=== PATIENT | male | born 1990 | race Two or more races ===

== ENCOUNTER → 2024-10-20 | Outpatient (CLI) | payer BC ==
[2024-10-20 15:47] LABS: Urine Bacteria None Seen /hpf (None Seen)
[2024-10-20 16:16] LABS: Basophils # (auto) 0.1 10 ^3/uL (0-0.2); Basophils % (auto) 1.4 % (0.0-2.0); Eosinophils # (auto) 0.3 10 ^3/uL (0-0.8); Hematocrit 42.7 % (41.0-53.0); Hemoglobin 14.1 g/dL (13.5-17.5); Lymphocytes # (auto) 2.2 10 ^3/uL (0.4-5.4); Mean Corpuscular Hemoglobin 27.7 pg (28.0-32.0); Mean Corpuscular Volume 84.1 fL (80.0-100.0); Monocytes # (auto) 0.5 10 ^3/uL (0-1.3); Neutrophils # (auto) 3.7 10 ^3/uL (1.6-8.6); Neutrophils % (auto) 54.6 % (37.0-80.0); Nucleated Red Blood Cells % 0.1 %; Platelet Count (auto) 245 10^3/uL (140-450); Red Blood Cells 5.08 10^6/uL (4.5-5.90); Red Cell Distribution Width 15.2 % (11.8-14.3); White Blood Cell 6.8 10^3/uL (4.4-10.8)
[2024-10-20 16:22] LABS: Urine Blood Negative /uL (Negative); Urine Clarity Clear (Clear); Urine Color Light-Yellow (Yellow); Urine Mucus FEW (None Seen); Urine Protein, UAD Negative (Negative); Urine Specific Gravity 1.023 (1.001-1.035); Urine Squamous Epithelial Cell None Seen /hpf (<5); Urine Urobilinogen Normal (Negative); Urine WBC < 1 /HPF (0-3)
[2024-10-20 16:33] LABS: Alanine Aminotransferase 23 U/L (7-40); Albumin 4.7 g/dL (3.2-4.8); Alkaline Phosphatase 69 U/L (46-116); Anion Gap 8 (5-15); Aspartate Aminotransferase 16 U/L (13-40); BUN/Creatinine Ratio 13.2 (10.0-20.0); Bilirubin, Total 0.5 mg/dL (0.2-1.0); Blood Urea Nitrogen 12 mg/dL (9-23); Calcium 9.9 mg/dL (8.7-10.4); Carbon Dioxide 26 mmol/L (20-31); Chloride 107 mmol/L (98-107); Glucose 89 mg/dL (74-106); Potassium 4.3 mmol/L (3.5-5.1); Sodium 141 mmol/L (136-145); Total Protein 7.2 g/dL (5.7-8.2)
[2024-10-21 07:07] LABS: RPR Non Reactive (Non Reactive)
[2024-10-21 15:38] LABS: Triglycerides 58 mg/dL (< 150)
[2024-10-21 15:39] LABS: Bilirubin, Direct 0.1 mg/dL (<0.3); Cholesterol 209 mg/dL (< 200)
[2024-10-21 15:40] LABS: HDL Cholesterol 53 mg/dL (40-59)
[2024-10-21 15:52] LABS: LDL Cholesterol 149 mg/dL (< 100)
== END | disposition home or self-care (01) ==
LOC: LAB 15:30
PROVIDERS: ATTEND Nurse Practitioner Family
DX: Z00.01 Encounter for general adult medical examination with abnormal findings (principal); Z11.3 Encounter for screening for infections with a predominantly sexual mode of transmission; R10.11 Right upper quadrant pain
CPT/HCPCS: 36415; 80053; 80061; 80076; 81001; 82306; 84443; 85025; 86592; 86703

== ENCOUNTER 2025-07-22 08:19 | Inpatient (IN) | payer BC ==
[2025-07-21 15:00] LABS: Hematocrit 41.0 % (41.0-53.0); Hemoglobin 14.0 g/dL (13.5-17.5); Mean Corpuscular Hemoglobin 28.7 pg (28.0-32.0); Mean Corpuscular Volume 84.1 fL (80.0-100.0); Nucleated Red Blood Cells % 0.0 %
[2025-07-21 15:17] LABS: INR 0.99 (0.9-1.15); Partial Thromboplastin Time 31.2 SEC (24.5-34.5); Prothrombin Time 10.5 sec (9.3-11.8)
[2025-07-21 15:31] LABS: Alanine Aminotransferase 25 U/L (7-40); Albumin 4.8 g/dL (3.2-4.8); Alkaline Phosphatase 74 U/L (46-116); Anion Gap 10 (5-15); BUN/Creatinine Ratio 11.8 (10.0-20.0); Bilirubin, Total 0.4 mg/dL (0.2-1.0); Blood Urea Nitrogen 12 mg/dL (9-23); Calcium 9.8 mg/dL (8.7-10.4); Carbon Dioxide 28 mmol/L (20-31); Chloride 104 mmol/L (98-107); Glucose 85 mg/dL (74-106); Potassium 4.5 mmol/L (3.5-5.1); Sodium 142 mmol/L (136-145); Total Protein 7.7 g/dL (5.7-8.2); Urine Protein, UAD Negative (Negative)
[~2025-07-22] VITALS: Ht 170.2 cm; Wt 109.0 kg
[2025-07-22] VITALS (7 sets, daily range): BP systolic 111–117; BP diastolic 69–74; PULSE 61–94; RESP 12–19; TEMP 97.5–98.2; O2SAT 96–100
[2025-07-22] MEDS ORDERED: SUGAMMADEX 200mg/2ml Vial (100MG/ML) IV ONE (10:07)
[2025-07-22] MEDS ORDERED: ONDANSETRON HCL 4 MG/2 ML VIAL ONE (10:07)
[2025-07-22] MEDS ORDERED: PROPOFOL 10 MG/ML 20 ML IV ONE (10:07)
[2025-07-22] MEDS ORDERED: fentaNYL CITRATE 100 MCG/2 ML VL ONE (10:07)
[2025-07-22] MEDS ORDERED: ROCURONIUM 10MG/ML 10ML VIAL IV ONE (10:07)
[2025-07-22] MEDS ORDERED: KETAMINE 50mg/ML 1ml syringe ONE (10:07)
[2025-07-22] MEDS ORDERED: MIDAZOLAM HCL 2MG/2ML 2ml VIAL (1mg/ml) ONE (10:10)
--- NOTE | 2025-07-22 12:26 | DVHOP ---
DATE OF SURGERY: 07/22/2025 PREOPERATIVE DIAGNOSES: Cholelithiasis and cholecystitis. POSTOPERATIVE DIAGNOSES: Cholelithiasis and cholecystitis. The patient's operation was aborted due to severe bradycardia following ____ of carbon dioxide into the peritoneal cavity. The anesthesiologist reported a decrease in the patient's heart rate to 28 from the initial heart rate of 75. Despite multiple drugs given, the highest that his heart rate returned to was approximately 50 each time we attempted insufflation. After releasing the insufflation, his bradycardia returned. For this reason, due to the refractory bradycardia, the operation was canceled. The patient will be admitted and Cardiology consult will be obtained. MD GIULIA Donaldson/CIARAN/AMBROSIO TID: [id number] RECEIPT: [id number]
[2025-07-22] MEDS: KETOROLAC TROMETH 30 MG/ML 1ML VIAL IV ONE (12:35)
[2025-07-22] MEDS ORDERED: NITROGLYCERIN 0.4 MG SL TAB SL PRN (12:45)
[2025-07-22] MEDS ORDERED: ONDANSETRON HCL 4 MG/2 ML VIAL IV PRN (12:45)
[2025-07-22] MEDS ORDERED: ACETAMINOPHEN 325 MG TAB PO PRN (12:45)
[2025-07-22] MEDS ORDERED: MORPHINE SULFATE INJ 2 MG/ml SYRG IV PRN (12:45)
--- NOTE | 2025-07-22 12:45 | DVHHP2 ---
Review of Systems Allergies: Coded Allergies: NO KNOWN ALLERGIES (Unverified , 07/21/25) Medications Current Medications Medications Dose Ordered Sig/Jj Route Start Time Stop Time Status Last Admin Dose Admin Sodium Chloride 1,000 ml @ 125 mls/hr Q8H IV 07/22/25 11:15 Exam Vital Signs Vital Signs Date Time Temp Pulse Resp B/P (MAP) Pulse Ox O2 Delivery O2 Flow Rate FiO2 07/22/25 11:04 97.3 65 19 139/73 (95) 100 97.3 07/22/25 11:04 Mask 5.0 07/22/25 11:04 100 Labs/Xrays Labs Test 07/21/25 14:53 Range/Units White Blood Count 8.4 4.4-10.8 10^3/uL Red Blood Count 4.87 4.5-5.90 10^6/uL Hemoglobin 14.0 13.5-17.5 g/dL Hematocrit 41.0 41.0-53.0 % Mean Corpuscular Volume 84.1 80.0-100.0 fL Mean Corpuscular Hemoglobin 28.7 28.0-32.0 pg Mean Corpuscular Hemoglobin Concent 34.2 32.0-36.0 g/dL Red Cell Distribution Width 14.8 H 11.8-14.3 % Platelet Count 257 140-450 10^3/uL Mean Platelet Volume 9.0 6.9-10.8 fL Neutrophils (%) (Auto) 54.2 37.0-80.0 % Lymphocytes (%) (Auto) 34.0 10.0-50.0 % Monocytes (%) (Auto) 6.5 0.0-12.0 % Eosinophils (%) (Auto) 4.1 0.0-7.0 % Basophils (%) (Auto) 1.2 0.0-2.0 % Neutrophils # (Auto) 4.6 1.6-8.6 10 ^3/uL Lymphocytes # (Auto) 2.9 0.4-5.4 10 ^3/uL Monocytes # (Auto) 0.5 0-1.3 10 ^3/uL Eosinophils # (Auto) 0.3 0-0.8 10 ^3/uL Basophils # (Auto) 0.1 0-0.2 10 ^3/uL Nucleated Red Blood Cells 0.0 % Prothrombin Time 10.5 9.3-11.8 sec Prothrombin Time INR 0.99 0.9-1.15 Activated Partial Thromboplast Time 31.2 24.5-34.5 SEC Urine Color Colorless Yellow Urine Clarity Clear Clear Urine pH 6.5 5.0-9.0 Urine Specific [place] 1.007 1.001-1.035 Urine Protein Negative Negative Urine Ketones Negative Negative Urine Blood Negative Negative /uL Urine Nitrite Negative Negative Urine Bilirubin Negative Negative Urine Urobilinogen Normal Negative mg/dL Urine Leukocyte Esterase Negative Negative /uL Urine RBC None seen 0 - 3 /hpf Urine Microscopic WBC < 1 0-3 /HPF Urine Squamous Epithelial Cells None seen <5 /hpf Urine Bacteria None seen None Seen /hpf Urine Glucose Normal Normal mg/dL Sodium Level 142 136-145 mmol/L Potassium Level 4.5 3.5-5.1 mmol/L Chloride Level 104 98-107 mmol/L Carbon Dioxide Level 28 20-31 mmol/L Anion Gap 10 5-15 Blood Urea Nitrogen 12 9-23 mg/dL Creatinine 1.02 0.700-1.30 mg/dL Glomerular Filtration Rate Calc 99 >90 mL/min BUN/Creatinine Ratio 11.8 10.0-20.0 Serum Glucose 85 74-106 mg/dL Calcium Level 9.8 8.7-10.4 mg/dL Total Bilirubin 0.4 0.2-1.0 mg/dL Aspartate Amino Transferase (AST) 23 13-40 U/L Alanine Aminotransferase (ALT) 25 7-40 U/L Alkaline Phosphatase 74 46-116 U/L Total Protein 7.7 5.7-8.2 g/dL Albumin 4.8 3.2-4.8 g/dL Microbiology Date/Time Source Procedure Growth Status 07/21/25 14:53 Voided Urine Urine Culture - Preliminary No growth Resulted SEPSIS Sepsis Screen Physician Orders Lidocaine W/Epinephrine 1% Inj (07/22/25 09:54) * Cardiology Consult (07/22/25 11:10) * Hospitalist Consult (07/22/25 ) * Cardiology Consult (07/22/25 11:12) Npo (Nothing By Mouth) Diet (07/22/25 Lunch) Page Hospitalist For Admission (07/22/25 11:13) Call/Page Hospitalist/Atten Fo (07/22/25 11:13) Abdominal Binder (07/22/25 11:13) Sodium Chloride 0.9% (07/22/25 11:15) Admit (07/22/25 12:38) Nitroglycerin Sublingual (Ntrostat Subli (07/22/25 12:45) Morphine Sulfate Injection (07/22/25 12:45) Stat Ekg For Chest Pain (07/22/25 12:38) Notify Md Of Changes From Base (07/22/25 12:38) Change Attendant For 24 Hours (07/22/25 12:38) Emergency Dysrhythmia Protocol (07/22/25 12:38) Rhythm Strips Once Every Shift (07/22/25 12:38) Oxygen By Nasal Cannula (07/22/25 12:38) Full Liq Diet (07/22/25 Lunch) Vital Signs Date Time Temp Pulse Resp B/P (MAP) Pulse Ox O2 Delivery O2 Flow Rate FiO2 07/22/25 11:04 97.3 65 19 139/73 (95) 100 97.3 07/22/25 11:04 65 19 100 Mask 5.0 07/22/25 11:04 Mask 5.0 100 07/22/25 08:25 98.0 65 20 122/73 (89) 95 98.0 Assessment/Plan Assessment/Plan see dictated note Plan discussed with: Patient My Orders Orders - SONYA PAYAN MD Procedure Category Date Status Time Admit ADMIT 07/22/25 Verified 12:38 Nitroglycerin PHA 07/22/25 Verified Sublingual (Ntrostat 12:45 Morphine Sulfate PHA 07/22/25 Verified Injection 12:45 Stat Ekg For Chest LEXIS 07/22/25 Verified Pain 12:38 Notify Md Of Changes [facility] 07/22/25 Verified From Base 12:38 Change Attendant For [facility] 07/22/25 Verified 24 Hours 12:38 Emergency Dysrhythmia [facility] 07/22/25 Verified Protocol 12:38 Rhythm Strips Once [facility] 07/22/25 Verified Every Shift 12:38 Oxygen By Nasal RT 07/22/25 Verified Cannula 12:38 Full Liq Diet DIET 07/22/25 Verified Lunch Date of Service: Jul 22, 2025 Billing Provider: SONYA PAYAN MD Common Visit Codes: [id number] INP/OBS CARE (HIGH) SONYA PAYAN MD Jul 22, 2025 12:45
--- NOTE | 2025-07-22 12:58 | DVHINCON2 ---
Date Seen: Jul 22, 2025 Referring Physician TITO Randall Reason for Consultation Intraoperative bradycardia History of Present Illness This is a 35-year-old male patient who presents to this facility for a scheduled cholecystectomy. Intraoperatively, the patient was noted to become bradycardic with heart rate reaching as low as 19 beats per minute per Anesthesiology report. At that time, the patient was given Atropine 1.4mg followed by a total of 20mg epinephrine intravenously. At the time of assessment, the patient is back in a normal sinus rhythm. A twelve lead electrocardiogram done postoperatively revealed normal sinus rhythm. The patient denies any cardiac symptoms. Significant past medical history includes tobacco use and obesity. The patient denies taking any prescribed or [id number] medications. He does report history of phentermine use with last dose taken on 06/29/2025. Past Medical History Past medical history reviewed. No other significant than mentioned above. Past Surgical History Denies any previous surgeries Family History Family history reviewed. Social History Patient reports a 12 year history of chewing tobacco, quit approximately two years ago Denies any illicit drug use Admits to occasional alcohol use Allergies: Coded Allergies: NO KNOWN ALLERGIES (Unverified , 07/21/25) Home Meds No Active Prescriptions or Reported Meds Home Meds Denies taking any prescribed medications Current Medications Current Medications Medications (Trade) Dose Ordered Sig/Jj Route PRN Reason Start Time Stop Time Status Last Admin Sodium Chloride 1,000 ml @ 125 mls/hr Q8H IV 07/22/25 11:15 Review of Systems Constitutional: No symptom reported Ears, Nose, & Throat: No symptom reported Eyes: No symptom reported Neurological: No symptoms reported Pulmonary/Respiratory: No symptoms reported Cardiovascular: No symptom reported Gastrointestinal: No symptom reported Genitourinary: No symptom reported Musculoskeletal: No symptom reported Skin: No symptom reported Psychiatric: No symptom reported Endocrine: No symptom reported Hematologic/Lymphatic: No symptom reported Vital Signs Vital Signs Date Time Temp Pulse Resp B/P (MAP) Pulse Ox O2 Delivery O2 Flow Rate FiO2 07/22/25 11:04 97.3 65 19 139/73 (95) 100 97.3 07/22/25 11:04 Mask 5.0 07/22/25 11:04 100 Physical Exam General Appearance: Cooperative. Obese Pulmonary/Respiratory: Clear, bilateral breaths sounds. Cardiovascular/Chest: Regular rate and rhythm. Peripheral Pulses: 2+ Radial (R). 2+ Radial (L). 2+ Pedal (R). 2+ Pedal (L) Abdominal Exam: Normal bowel sounds Ankle Exam: Negative ankle edema Lower extremities: Negative lower extremity edema Neuro/Mental Status: A/OX4, coherent. Thoughts/Psych: Normal thought pattern. Appropriate mood and affect. Good judgment and insight. Appearance: No acute distress. Skin Exam: Normal inspection. Normal color. Warm and dry. Labs/Diagnostic Data Labs Test 07/21/25 14:53 Range/Units White Blood Count 8.4 4.4-10.8 10^3/uL Red Blood Count 4.87 4.5-5.90 10^6/uL Hemoglobin 14.0 13.5-17.5 g/dL Hematocrit 41.0 41.0-53.0 % Mean Corpuscular Volume 84.1 80.0-100.0 fL Mean Corpuscular Hemoglobin 28.7 28.0-32.0 pg Mean Corpuscular Hemoglobin Concent 34.2 32.0-36.0 g/dL Red Cell Distribution Width 14.8 H 11.8-14.3 % Platelet Count 257 140-450 10^3/uL Mean Platelet Volume 9.0 6.9-10.8 fL Neutrophils (%) (Auto) 54.2 37.0-80.0 % Lymphocytes (%) (Auto) 34.0 10.0-50.0 % Monocytes (%) (Auto) 6.5 0.0-12.0 % Eosinophils (%) (Auto) 4.1 0.0-7.0 % Basophils (%) (Auto) 1.2 0.0-2.0 % Neutrophils # (Auto) 4.6 1.6-8.6 10 ^3/uL Lymphocytes # (Auto) 2.9 0.4-5.4 10 ^3/uL Monocytes # (Auto) 0.5 0-1.3 10 ^3/uL Eosinophils # (Auto) 0.3 0-0.8 10 ^3/uL Basophils # (Auto) 0.1 0-0.2 10 ^3/uL Nucleated Red Blood Cells 0.0 % Prothrombin Time 10.5 9.3-11.8 sec Prothrombin Time INR 0.99 0.9-1.15 Activated Partial Thromboplast Time 31.2 24.5-34.5 SEC Urine Color Colorless Yellow Urine Clarity Clear Clear Urine pH 6.5 5.0-9.0 Urine Specific [place] 1.007 1.001-1.035 Urine Protein Negative Negative Urine Ketones Negative Negative Urine Blood Negative Negative /uL Urine Nitrite Negative Negative Urine Bilirubin Negative Negative Urine Urobilinogen Normal Negative mg/dL Urine Leukocyte Esterase Negative Negative /uL Urine RBC None seen 0 - 3 /hpf Urine Microscopic WBC < 1 0-3 /HPF Urine Squamous Epithelial Cells None seen <5 /hpf Urine Bacteria None seen None Seen /hpf Urine Glucose Normal Normal mg/dL Sodium Level 142 136-145 mmol/L Potassium Level 4.5 3.5-5.1 mmol/L Chloride Level 104 98-107 mmol/L Carbon Dioxide Level 28 20-31 mmol/L Anion Gap 10 5-15 Blood Urea Nitrogen 12 9-23 mg/dL Creatinine 1.02 0.700-1.30 mg/dL Glomerular Filtration Rate Calc 99 >90 mL/min BUN/Creatinine Ratio 11.8 10.0-20.0 Serum Glucose 85 74-106 mg/dL Calcium Level 9.8 8.7-10.4 mg/dL Total Bilirubin 0.4 0.2-1.0 mg/dL Aspartate Amino Transferase (AST) 23 13-40 U/L Alanine Aminotransferase (ALT) 25 7-40 U/L Alkaline Phosphatase 74 46-116 U/L Total Protein 7.7 5.7-8.2 g/dL Albumin 4.8 3.2-4.8 g/dL Microbiology Date/Time Source Procedure Growth Status 07/21/25 14:53 Voided Urine Urine Culture - Preliminary No growth Resulted Assessment Sinus bradycardia, now normal sinus rhythm Rule out structural heart disease Cholelithiasis and cholecystitis History of tobacco use Obesity Plan/Recommendation We will continue with the following plan/recommendations (): * Transthoracic echocardiogram to evaluate cardiac function * Avoid AV rathur blocking agents at this time * Obtain TSH * Close cardiac surveillance;call cardiology immediately for any ECG changes including pauses or atrioventricular blocks Case discussed with Dr. Zimmerman and twelve lead electrocardiogram reviewed with . No significant pauses or atrioventricular blocks noted. Thank you for allowing us to care for this patient. Please call with any questions or concerns. Critical care time spent: 44 minutes This medical document was created using an electronic medical record system with voice recognition software and computerized dictation system. Although this document has been carefully reviewed, there might still be some phonetic and typographical errors. Occasional wrong-word or ``sound-alike substitutions may have occurred due to the inherent limitations of voice recognition software. These areas are purely typographical due to imperfections of the software programs and do not reflect any compromise in the patient's medical care. Please read the chart carefully and recognize, using context, where these substitutions have occurred. Plan discussed with: Patient NYHA Physical activity limitations: NA Date of Service: Jul 22, 2025 Billing Provider: TIMUR MISHRA Cardiology Common Codes: [id number] INP/OBS CARE (High) Cardiology Consultation Codes: [id number] CONSULT <45MIN TIMUR MISHRA Jul 22, 2025 12:58
--- NOTE | 2025-07-22 13:01 | DVHHP ---
HISTORY OF PRESENT ILLNESS: The patient is a 35-year-old gentleman who had initially come in for cholelithiasis and chronic cholecystitis. The patient while undergoing surgery, however, was noted to have bradycardia with heart rate as in the 28. The patient's procedure was subsequently aborted and he was brought to the recovery room. The patient at this time denies any chest pain, no shortness of breath, no nausea or vomiting. There is mild abdominal tenderness at the site of surgery. REVIEW OF SYSTEMS: Review of rest of systems otherwise currently negative. PAST MEDICAL HISTORY: No significant illness in the past. MEDICATIONS: He takes no medications on a regular basis, although he was on phentermine, which he stopped a month ago. ALLERGIES: No known drug allergies. SOCIAL HISTORY: Denies smoking. Occasional alcohol. FAMILY HISTORY: Negative. PHYSICAL EXAMINATION: GENERAL: The patient is awake, alert. VITAL SIGNS: Temperature of 97.3, pulse 65 per minute, blood pressure 139/73. SHEENT: Unremarkable. NECK: There is no JVD. No pedal edema. LUNGS: Equal bilaterally. No added sounds. CARDIOVASCULAR: S1 and S2 is regular without murmurs. ABDOMEN: Soft. There is no organomegaly. NEUROLOGIC: Nonfocal. MUSCULOSKELETAL: Normal. ASSESSMENT AND PLAN: * Bradycardia for which the patient will get an echocardiogram done. TSH will be checked as well as a Cardiology evaluation be obtained. * Obesity. * Cholelithiasis with questionable chronic cholecystitis with aborted cholecystectomy. MD BUCK Thomson/MARINA TID: [id number] RECEIPT: [id number]
[2025-07-22] MEDS: ceFAZolin 2 GM/D5W50ml 50 ML IV ONE (13:37)
[2025-07-22] MEDS: LIDOCAINE W/ EPINEPHRINE 1% 20ML VIAL ONE (13:37)
[2025-07-22] MEDS: BUPIVACAINE 0.5% P/F INJ 10 ML VIAL ONE (13:37)
[2025-07-22] MEDS: KETOROLAC TROMETH 30 MG/ML 1ML VIAL ONE (13:38)
[2025-07-22 13:39] LABS: Amphetamine Screen, Urine Neg (NEGATIVE); Barbiturate Scree,Urine Neg (NEGATIVE); Benzodiazephine Screen, Urine Pos (NEGATIVE); Cocaine Screen, Urine Neg (NEGATIVE); Opiate Scree,Urine Neg (NEGATIVE); Phencyclidine Screen, Urine Neg (NEGATIVE)
[2025-07-22 13:40] LABS: Cannabinoid Screen, Urine Neg (NEGATIVE)
[2025-07-22 13:45] LABS: Hematocrit 41.3 % (41.0-53.0); Hemoglobin 14.0 g/dL (13.5-17.5); Mean Corpuscular Hemoglobin 28.6 pg (28.0-32.0); Mean Corpuscular Volume 84.2 fL (80.0-100.0); Nucleated Red Blood Cells % 0.0 %
[2025-07-22 14:03] LABS: Alanine Aminotransferase 23 U/L (7-40); Alkaline Phosphatase 69 U/L (46-116); Anion Gap 6 (5-15); BUN/Creatinine Ratio 15.1 (10.0-20.0); Blood Urea Nitrogen 13 mg/dL (9-23); Calcium 9.4 mg/dL (8.7-10.4); Carbon Dioxide 29 mmol/L (20-31); Chloride 105 mmol/L (98-107); Potassium 4.4 mmol/L (3.5-5.1); Sodium 140 mmol/L (136-145); Total Protein 7.1 g/dL (5.7-8.2)
[2025-07-22 14:04] LABS: Albumin 4.5 g/dL (3.2-4.8); Bilirubin, Total 0.3 mg/dL (0.2-1.0)
[2025-07-22 14:09] LABS: Glucose 110 mg/dL (74-106)
[2025-07-22] MEDS: SODIUM CHLORIDE 0.9% 1,000 ML IV SCH (15:43)
--- NOTE | 2025-07-22 18:20 | DVHSR ---
APPROVED REPORT EXAM: Two-dimensional and M-mode echocardiogram with Doppler and color Doppler. INDICATION Bradycardia RISK FACTORS Height: 67, Weight: 238 DIMENSIONS LVDd 4.6 (3.8-5.7cm) LA (2D) 3.5 (1.9-4.0cm) Aortic Root 3.2 (2.0-3.7cm) LVDs 2.9 (2.5-4.0cm) LA (MM) (1.9-4.0cm) Aortic Cusp Exc 1.8 (1.5-2.0cm) EF (%) 65.0 (55-70%) Rt. Atrium 4.4 (1.9-4.0cm) Asc. Aorta 2.7 cm IVSd 1.1 (0.7-1.1cm) RV (D) (1.8-2.4cm) PWd 1.0 (0.7-1.1cm) Mitral Valve Mitral Mitral Stenosis E wave 1.03m/s MV Mean GR. mmHg A wave 0.62m/s MV Peak GR. mmHg E/A ratio 1.7 2D MVA cm2 DECEL Time 145ms PRESS 1/2 Time ms Aortic Valve Aortic Valve Aortic Stenosis V1 1.06m/s AO Mean GR. 5mmHg V2 1.39m/s AO Peak GR. 8mmHg LVOT Diameter 2.0 (1.8-2.4cm) Doppler NORM 2.39cm2 Pulmonic Valve V2 1.03m/s Tricuspid Valve RVSP 8mmHg Other Information Technically limited study due to limited access to subcostal window. Conclusion Technically good study. Sinus rhythm. Normal chamber sizes. Valves are normal. EF of 55-60% with normal RV function. Dopplers unremarkable. No pericardial effusion masses or vegetations.
[2025-07-23] VITALS (8 sets, daily range): BP systolic 107–119; BP diastolic 66–74; PULSE 50–66; RESP 14–18; TEMP 96.2–98.1; O2SAT 94–98
[2025-07-23] MEDS: SODIUM CHLORIDE 0.9% 1,000 ML IV SCH (02:35)
--- NOTE | 2025-07-23 10:08 | DVHPN2 ---
Progress Note Date Seen: Jul 23, 2025 Medical Necessity Reason Pt with a Central, PICC or Fol: No Subjective Patient reports: No new complaints Review of Systems: HEENT:Normal, CVS:Normal, RESPIRATORY:Normal, GI:Normal, :Normal, MSK:Normal, NEURO:Normal Objective vital signs Vital Sign Date Time Temp Pulse Resp B/P (MAP) Pulse Ox O2 Delivery O2 Flow Rate FiO2 07/23/25 09:00 96.2 65 18 111/67 (82) 94 96.2 07/22/25 20:00 Room Air* 0 21 Total Intake and Output 07/22/25 07/22/25 07/23/25 15:00 23:00 07:00 Intake Total 100 ml 250 ml 450 ml Output Total 600 ml 600 ml Balance 100 ml -350 ml -150 ml medications Current Medications Medications Dose Ordered Sig/Jj Route Start Time Stop Time Status Last Admin Dose Admin Sodium Chloride 1,000 ml @ 125 mls/hr Q8H IV 07/22/25 11:15 07/23/25 02:36 125 MLS/HR Nitroglycerin 0.4 mg Q5MINP PRN SL 07/22/25 12:45 Morphine Sulfate 2 mg Q30M PRN IV 07/22/25 12:45 Acetaminophen 650 mg Q6HP PRN PO 07/22/25 12:45 Ondansetron HCl 4 mg Q6HPRN PRN IV 07/22/25 12:45 Tramadol HCl 50 mg Q6HP PRN PO 07/22/25 12:45 07/23/25 08:03 50 MG Examination: GENERAL:Normal, HEENT:Normal, NECK:Normal, LUNGS:Normal, CVS:Normal, ABDOMEN:Normal, MSK:Normal, SKIN:Normal, NEURO:Normal, :Normal laboratory and microbiology Laboratory Tests 07/22/25 13:34 Test 07/22/25 13:34 Range/Units Serum Glucose 110 H 74-106 mg/dL Microbiology Date/Time Source Procedure Growth Status 07/21/25 14:53 Voided Urine Urine Culture - Preliminary No growth Resulted Problem List/Assessment/Plan Problem List/Assessment/Plan * Bradycardia for which the patient will get an echocardiogram done. TSH will be checked as well as a Cardiology evaluation be obtained. * Obesity. * Cholelithiasis with questionable chronic cholecystitis with aborted cholecystectomy. Plan discussed with: Patient My Orders My Orders Orders - SONYA PAYAN MD Procedure Category Date Status Time Admit ADMIT 07/22/25 Transmitted 12:38 Nitroglycerin PHA 07/22/25 In Process Sublingual (Ntrostat 12:45 Morphine Sulfate PHA 07/22/25 In Process Injection 12:45 Stat Ekg For Chest [facility] 07/22/25 In Process Pain 12:38 Notify Md Of Changes [facility] 07/22/25 In Process From Base 12:38 Channel Specialist For [facility] 07/22/25 In Process 24 Hours 12:38 Emergency Dysrhythmia [facility] 07/22/25 In Process Protocol 12:38 Rhythm Strips Once [facility] 07/22/25 In Process Every Shift 12:38 Oxygen By Nasal RT 07/22/25 Transmitted Cannula 12:38 Full Liq Diet DIET 07/22/25 Transmitted Lunch Acetaminophen Tablet PHA 07/22/25 In Process (Tylenol Tablet) 12:45 Ondansetron Hcl PHA 07/22/25 In Process (Zofran) 12:45 Tramadol Hcl (Ultram) PHA 07/22/25 In Process 12:45 Urinalysis LAB 07/22/25 Logged 12:58 NS PHA 07/23/25 Transmitted 10:15 Regular Diet DIET 07/23/25 Transmitted Lunch Date of Service: Jul 23, 2025 Billing Provider: SONYA PAYAN MD Common Visit Codes: [id number] INP/OBS CARE(HIGH) SONYA PAYAN MD Jul 23, 2025 10:08
--- NOTE | 2025-07-23 11:58 | ECG ---
[facility] Test Date: 2025-07-22 Test Time: 11:11:33 Pat Name: STEVE RIDDLE Department: Room: 0223T B Gender: M Senior Painter: SHAMEKA T : 1990 Requested By: GALO WOLFE Order Number: [id number] Reading MD: To Zimmerman Measurements Intervals [place] Rate: 65 P: -5 WY: 148 QRS: 30 QRSD: 78 T: 29 QT: 376 QTc: 391 Interpretive Statements Normal sinus rhythm Electronically Signed On 07-23-2025 19:25:07 PST by To Zimmerman Please click the below link to view image of tracing.
--- NOTE | 2025-07-23 13:36 | DVHPN2 ---
Consult Progress Note Subjective Other Systems: Patient in sinus bradycardia (HR high 50's) at time of assessment. color television console monitor reviewed from overnight, heart rate reached as low as 47 beats per minute without any atrioventricular blocks or pauses. The patient denies any cardiac symptoms. Objective vital signs Vital Sign Date Time Temp Pulse Resp B/P (MAP) Pulse Ox O2 Delivery O2 Flow Rate FiO2 07/23/25 09:00 96.2 65 18 111/67 (82) 94 96.2 07/22/25 20:00 Room Air* 0 21 Total Intake and Output 07/22/25 07/22/25 07/23/25 15:00 23:00 07:00 Intake Total 100 ml 250 ml 450 ml Output Total 600 ml 600 ml Balance 100 ml -350 ml -150 ml medications Current Medications Medications Dose Ordered Sig/Jj Route Start Time Stop Time Status Last Admin Dose Admin Nitroglycerin 0.4 mg Q5MINP PRN SL 07/22/25 12:45 Morphine Sulfate 2 mg Q30M PRN IV 07/22/25 12:45 Acetaminophen 650 mg Q6HP PRN PO 07/22/25 12:45 Ondansetron HCl 4 mg Q6HPRN PRN IV 07/22/25 12:45 Tramadol HCl 50 mg Q6HP PRN PO 07/22/25 12:45 07/23/25 08:03 50 MG Sodium Chloride 1,000 ml @ 75 mls/hr [id number] IV 07/23/25 10:15 07/23/25 10:50 75 MLS/HR Examination: GENERAL:Normal, LUNGS:Normal, CVS:Normal, NEURO:Normal laboratory and microbiology Laboratory Tests 07/22/25 13:34 Test 07/22/25 13:34 Range/Units Serum Glucose 110 H 74-106 mg/dL Problem List/Assessment/Plan Problem List/Assessment/Plan Preprocedural cardiovascular examination Sinus bradycardia Ruled out structural heart disease Cholelithiasis and cholecystitis History of tobacco use Obesity Plan/Recommendations (): * Transthoracic echocardiogram reveals an EF of 55-60% * Avoid AV arthur blocking agents at this time * Close cardiac surveillance;call cardiology immediately for any ECG changes including pauses or atrioventricular blocks Case discussed reviewed with Dr. Zimmerman and twelve lead electrocardiogram reviewed with . No significant pauses or atrioventricular blocks noted. Revised cardiac risk index for preoperative risk (Marc criteria): 1 point (1.1% risk of major cardiac event). Cardiac symptoms have been ruled out. There is no underlying history of congestive heart failure, coronary artery disease, or equivalent of cardiac symptoms. The patient reports a good functional capacity. Per cardiology standpoint, patient is at an acceptable-risk for moderate-risk surgery. There is no additional cardiac work-up indicated prior to surgery. Please reconsult Cardiology team if needed. Thank you for allowing us to care for this patient. Please call with any questions or concerns. This medical document was created using an electronic medical record system with voice recognition software and computerized dictation system. Although this document has been carefully reviewed, there might still be some phonetic and typographical errors. Occasional wrong-word or ``sound-alike substitutions may have occurred due to the inherent limitations of voice recognition software. These areas are purely typographical due to imperfections of the software programs and do not reflect any compromise in the patient's medical care. Please read the chart carefully and recognize, using context, where these substitutions have occurred. Plan discussed with: Patient Date of Service: Jul 23, 2025 Billing Provider: TIMUR MISHRA Common Visit Codes: [id number] INP/OBS CARE(HIGH) TIMUR MISHRA Jul 23, 2025 13:36
[2025-07-24] VITALS (11 sets, daily range): BP systolic 102–130; BP diastolic 61–82; PULSE 46–68; RESP 15–18; TEMP 97–98.1; O2SAT 94–98
[2025-07-24] MEDS ORDERED: ceFAZolin 2 GM/D5W50ml 0 ML IV ONE (08:35)
[2025-07-24] MEDS ORDERED: LIDOCAINE 1%-Mpf/Epinephrine 1:200,000 30ml VIAL ONE (09:19)
[2025-07-24] MEDS ORDERED: BUPIVACAINE 0.25% INJ 50ML VIAL ONE (09:19)
[2025-07-24] MEDS ORDERED: fentaNYL CITRATE 100 MCG/2 ML VL ONE (09:29)
[2025-07-24] MEDS ORDERED: MIDAZOLAM HCL 2MG/2ML 2ml VIAL (1mg/ml) ONE (09:29)
[2025-07-24] MEDS ORDERED: MEPERIDINE HCL (25 MG/ML) 1ML VIAL ONE (09:29)
[2025-07-24] MEDS ORDERED: hydrALAZINE HCL 20 MG/ML VL IV PRN (10:00)
[2025-07-24] MEDS ORDERED: ONDANSETRON HCL 4 MG/2 ML VIAL IV PRN (10:00)
[2025-07-24] MEDS ORDERED: MIDAZOLAM HCL 2MG/2ML 2ml VIAL (1mg/ml) IV PRN (10:00)
[2025-07-24] MEDS ORDERED: MORPHINE SULFATE 4 MG/ML SYR/VIAL IV PRN (10:00)
[2025-07-24] MEDS ORDERED: HYDROmorphone HCL 2 MG/ML VL/or syr IV PRN ×2 (10:00→10:30)
[2025-07-24] MEDS ORDERED: GLYCOPYRROLATE 0.2 MG/ML 1ML VIAL ONE (10:17)
[2025-07-24] MEDS ORDERED: PROPOFOL 10 MG/ML 20 ML IV ONE (10:17)
[2025-07-24] MEDS ORDERED: ONDANSETRON HCL 4 MG/2 ML VIAL ONE (10:17)
[2025-07-24] MEDS ORDERED: SUGAMMADEX 200mg/2ml Vial (100MG/ML) IV ONE (10:18)
--- NOTE | 2025-07-24 10:43 | DVHOP ---
DATE OF SURGERY: 07/24/2025 PREOPERATIVE DIAGNOSIS: The patient had a previous laparoscopic operation aborted approximately 48 hours ago due to severe bradycardia, which was refractory to treatment. DESCRIPTION OF PROCEDURE: At this time, the patient was taken to the operating room with the anesthesiologist being aware of the previous heart rate problems. The patient and his were thoroughly informed. Cardiology cleared the patient for an attempt to complete his operation. Under general endotracheal anesthesia, having been premedicated with Robinul by the anesthesiologist, Mr. Alejandro. The patient's port sites were reopened and cannulas were inserted into the abdominal cavity. Initially, the abdomen was insufflated at a slow rate to 10 cmHg pressure. As he was tolerating this insufflation, it was gradually increased to 15 to facilitate visualization. Laparoscopy revealed no obvious unexpected pathology, although it is hampered by the patient's morbid obesity. The patient's gallbladder was affected by chronic cholecystitis. It was placed on tension. The cystic duct and cystic artery were circumferentially dissected, skeletonized, and traced into the hepatocystic triangle to minimize the potential for inadvertent injury to the common bile duct. Once these structures were skeletonized and clearly visible, the cystic duct and cystic artery were divided between metallic clips and the gallbladder was then resected from its liver bed by electrocautery and traction. The fully mobilized gallbladder was placed into the specimen extraction bag, which was passed through the 10 mm port and then the gallbladder was removed from the peritoneal cavity. The subhepatic space was profusely irrigated. Irrigant was aspirated. Hemostasis was meticulously accomplished and found to be complete. At the termination of the procedure, there was no evidence of bleeding from either the port sites or from the liver bed or the gallbladder. Instrumentation was withdrawn. Pneumoperitoneum was evacuated. Fascia defect closed using 0 Vicryl. Wounds were approximated using Monocryl sutures. Skin approximated using metallic skin herve. The patient remained stable throughout the procedure. His heart rate was between 70-85 throughout the procedure and he left the operating room following an accurate needle and sponge counts. His was thoroughly informed by phone. MD GIULIA Donaldson/TIKI TID: [id number] RECEIPT: [id number]
--- NOTE | 2025-07-24 11:13 | DVHOP ---
DATE OF SURGERY: 07/24/2025 PREOPERATIVE DIAGNOSIS: The patient has a history of cholelithiasis and chronic cholecystitis. He was undergoing an attempted laparoscopic cholecystectomy approximately 48 hours ago, at which time the operation had to be aborted after insufflation of the abdominal cavity resulted in severe refractory bradycardia. The patient since then has been observed and Cardiology reviewed the patient's record as well as examined the patient and cleared the patient for additional attempt to complete the cholecystectomy. SURGEON: Kal Lopez MD DESCRIPTION OF PROCEDURE: The patient is being brought to the operating room, put on the operating room table, anesthetized. The anesthesiologist, Dr. Alejandro premedicated the patient with some Robinul. The patient's heart rate was maintained at approximately 70-85 beats per minute throughout the procedure and never decreased during the operation, during insufflation as well as manipulation of the patient's gallbladder and traction on the peritoneal structures. The patient's abdomen was insufflated. Examination revealed no obvious unexpected pathology on the cirrhosis surfaces visualized, although the examination is hampered by the patient's morbid obesity. The gallbladder was grasped with a grasping forceps and maintained on traction. The cystic duct and cystic artery were identified, circumferentially dissected, skeletonized and traced into the hepatocystic triangle so as to minimize the potential for inadvertent injury to the common bile duct. The structures having been skeletonized and traced into the hepatocystic triangle. The cystic duct and cystic artery were then divided between metallic clips, placed away from the common duct again attempting to ensure safety of the common bile duct. Once the cystic duct and artery were divided between metallic clips, the gallbladder was resected from its liver bed by electrocautery and traction. The fully mobilized gallbladder was placed into a specimen extraction bag, which was removed from the peritoneal cavity through the subxiphoid 10 mm port. The right upper quadrant was irrigated. Irrigant was aspirated. Hemostasis was meticulously assured, found to be complete. At the termination of the procedure, there was no evidence of bleeding from either the port sites or the liver bed. Following assurance of complete hemostasis, the right upper quadrant was again irrigated. Irrigant was aspirated. The patient's abdomen was desufflated after removal of the instrumentation. The fascial defect was closed using #0 Vicryl. Skin approximated using metallic skin herve. The patient remained stable throughout the procedure, left the operating room following an accurate needle and sponge count. His was thoroughly informed by phone. Kal Lopez MD PF/EKT TID: [id number] RECEIPT: [id number]
--- NOTE | 2025-07-24 11:20 | DVHPN2 ---
Reviewed: Care Plan, H&P, Labs, Medications, Previous Orders, Radiology Changes from previous H/P or p: No Changes Objective Vitals Vital Signs Date Time Temp Pulse Resp B/P (MAP) Pulse Ox O2 Delivery O2 Flow Rate FiO2 07/24/25 08:44 97.5 50 18 123/79 (94) 94 97.5 07/24/25 07:30 Room Air* 0 21 Intake/Output Intake and Output 07/24/25 07:00 Intake Total 2800 ml Balance 2800 ml Intake Oral 1800 ml IV Total 1000 ml # Voids 5 Medications Current Medications Medications Dose Ordered Sig/Jj Route Start Time Stop Time Status Last Admin Dose Admin Nitroglycerin 0.4 mg Q5MINP PRN SL 07/22/25 12:45 Morphine Sulfate 2 mg Q30M PRN IV 07/22/25 12:45 Acetaminophen 650 mg Q6HP PRN PO 07/22/25 12:45 Ondansetron HCl 4 mg Q6HPRN PRN IV 07/22/25 12:45 Tramadol HCl 50 mg Q6HP PRN PO 07/22/25 12:45 07/23/25 08:03 50 MG Sodium Chloride 1,000 ml @ 75 mls/hr [id number] IV 07/23/25 10:15 07/23/25 02:35 75 MLS/HR Hydromorphone HCl 0.5 mg Q4HPRN PRN IV 07/24/25 10:30 Cefazolin Sodium 50 ml @ 100 mls/hr Q8HR IV 07/24/25 14:00 Metronidazole 100 ml @ 100 mls/hr Q8HR IV 07/24/25 14:00 Laboratory Results Laboratory Tests 07/22/25 13:34 Urinalysis Test 07/21/25 14:53 Urine Color Colorless (Yellow) Urine Clarity Clear (Clear) Urine pH 6.5 (5.0-9.0) Urine Specific [place] 1.007 (1.001-1.035) Urine Protein Negative (Negative) Urine Ketones Negative (Negative) Urine Blood Negative /uL (Negative) Urine Nitrite Negative (Negative) Urine Bilirubin Negative (Negative) Urine Urobilinogen Normal mg/dL (Negative) Urine Leukocyte Esterase Negative /uL (Negative) Urine RBC None seen /hpf (0 - 3) Urine Microscopic WBC < 1 /HPF (0-3) Urine Squamous Epithelial Cells None seen /hpf (<5) Urine Bacteria None seen /hpf (None Seen) Urine Glucose Normal mg/dL (Normal) Microbiology Microbiology Date/Time Source Procedure Growth Status 07/21/25 14:53 Voided Urine Urine Culture - Preliminary Resulted Labs and/or images reviewed: Labs reviewed by me, Image(s) reviewed by me Assessment/Plan Assessment/Plan Acute cholelithiasis with possible cholecystitis status post laparoscopic cholecystectomy by surgeon Dr. Lopez 07/24/2025 continue Rocephin Flagyl pain medications IV fluids Bradycardia cardiology consult appreciated, echo 55 percent ejection fraction to avoid AV arthur blocking agents Plan discussed with: Patient Date of Service: Jul 24, 2025 Billing Provider: STACEY NORWOOD MD Common Visit Codes: [id number] INP/OBS CARE(HIGH) STACEY NORWOOD MD Jul 24, 2025 11:20
[2025-07-24] MEDS: ceFAZolin 1GM/50ML 50 ML IV ONE (14:32)
[2025-07-24] MEDS: ceFAZolin 1GM/50ML 50 ML IV SCH (14:35)
[2025-07-24] MEDS ORDERED: ceFAZolin 2 GM/D5W50ml 50 ML IV ONE (21:33)
[2025-07-24] MEDS ORDERED: cefTRIAXone 1GM/50ML 0 ML IV ONE (22:02)
[2025-07-24] MEDS: KETOROLAC TROMETH 30 MG/ML 1ML VIAL IV ONE (22:12)
[2025-07-25 01:00] VITALS: BP 110/77; PULSE 60; RESP 16; TEMP 98.1; O2SAT 96
[2025-07-25 05:00] VITALS: BP 132/81; PULSE 61; RESP 16; TEMP 98; O2SAT 97
--- NOTE | 2025-07-25 06:40 | DVHPN2 ---
Progress Note Date Seen: Jul 25, 2025 Medical Necessity Reason Pt with a Central, PICC or Fol: No Objective vital signs Vital Sign Date Time Temp Pulse Resp B/P (MAP) Pulse Ox O2 Delivery O2 Flow Rate FiO2 07/25/25 05:00 98.0 61 16 132/81 (98) 97 98.0 07/24/25 20:00 Room Air* 0 21 Total Intake and Output 07/24/25 07/24/25 07/25/25 15:00 23:00 07:00 Intake Total 100 ml 650 ml 2050 ml Balance 100 ml 650 ml 2050 ml medications Current Medications Medications Dose Ordered Sig/Jj Route Start Time Stop Time Status Last Admin Dose Admin Nitroglycerin 0.4 mg Q5MINP PRN SL 07/22/25 12:45 Morphine Sulfate 2 mg Q30M PRN IV 07/22/25 12:45 Acetaminophen 650 mg Q6HP PRN PO 07/22/25 12:45 Ondansetron HCl 4 mg Q6HPRN PRN IV 07/22/25 12:45 Tramadol HCl 50 mg Q6HP PRN PO 07/22/25 12:45 07/24/25 12:00 50 MG Sodium Chloride 1,000 ml @ 75 mls/hr [id number] IV 07/23/25 10:15 07/24/25 23:32 75 MLS/HR Hydromorphone HCl 0.5 mg Q4HPRN PRN IV 07/24/25 10:30 Cefazolin Sodium 50 ml @ 100 mls/hr Q8HR IV 07/24/25 14:00 07/25/25 05:19 100 MLS/HR Metronidazole 100 ml @ 100 mls/hr Q8HR IV 07/24/25 14:00 07/25/25 06:08 100 MLS/HR laboratory and microbiology Laboratory Tests 07/22/25 13:34 Test 07/22/25 13:34 Range/Units Serum Glucose 110 H 74-106 mg/dL Problem List/Assessment/Plan Problem List/Assessment/Plan 07/25/25 feels very well wants to go home, abdomen soft, appropriately tender, labs pending. If labs zeus ok he may be discharged, Plan discussed with: Patient GALO WOLFE MD Jul 25, 2025 06:40
[2025-07-25 06:45] LABS: Hematocrit 34.3 % (41.0-53.0); Hemoglobin 11.8 g/dL (13.5-17.5); Mean Corpuscular Hemoglobin 28.8 pg (28.0-32.0); Mean Corpuscular Volume 83.6 fL (80.0-100.0); Nucleated Red Blood Cells % 0.1 %
[2025-07-25 08:00] VITALS: RESP 18
[2025-07-25] MEDS ORDERED: METR-344 PO (08:00)
[2025-07-25] MEDS ORDERED: TRAM-626 PO (08:00)
[2025-07-25] MEDS ORDERED: LEVO500T91 PO (08:00)
--- NOTE | 2025-07-25 08:03 | DVHPN2 ---
Reviewed: Care Plan, H&P, Labs, Medications, Previous Orders, Radiology Changes from previous H/P or p: No Changes Objective Vitals Vital Signs Date Time Temp Pulse Resp B/P (MAP) Pulse Ox O2 Delivery O2 Flow Rate FiO2 07/25/25 05:00 98.0 61 16 132/81 (98) 97 98.0 07/24/25 20:00 Room Air* 0 21 Intake/Output Intake and Output 07/25/25 07:00 Intake Total 2800 ml Balance 2800 ml Intake Oral 1350 ml IV Total 1450 ml # Voids 4 Medications Current Medications Medications Dose Ordered Sig/Jj Route Start Time Stop Time Status Last Admin Dose Admin Nitroglycerin 0.4 mg Q5MINP PRN SL 07/22/25 12:45 Morphine Sulfate 2 mg Q30M PRN IV 07/22/25 12:45 Acetaminophen 650 mg Q6HP PRN PO 07/22/25 12:45 Ondansetron HCl 4 mg Q6HPRN PRN IV 07/22/25 12:45 Tramadol HCl 50 mg Q6HP PRN PO 07/22/25 12:45 07/24/25 12:00 50 MG Sodium Chloride 1,000 ml @ 75 mls/hr [id number] IV 07/23/25 10:15 07/24/25 23:32 75 MLS/HR Hydromorphone HCl 0.5 mg Q4HPRN PRN IV 07/24/25 10:30 Cefazolin Sodium 50 ml @ 100 mls/hr Q8HR IV 07/24/25 14:00 07/25/25 05:19 100 MLS/HR Metronidazole 100 ml @ 100 mls/hr Q8HR IV 07/24/25 14:00 07/25/25 06:08 100 MLS/HR Laboratory Results Laboratory Tests 07/22/25 13:34 07/25/25 06:09 LFT Test 07/25/25 06:09 Total Bilirubin 0.6 mg/dL (0.2-1.0) Urinalysis Test 07/21/25 14:53 Urine Color Colorless (Yellow) Urine Clarity Clear (Clear) Urine pH 6.5 (5.0-9.0) Urine Specific [place] 1.007 (1.001-1.035) Urine Protein Negative (Negative) Urine Ketones Negative (Negative) Urine Blood Negative /uL (Negative) Urine Nitrite Negative (Negative) Urine Bilirubin Negative (Negative) Urine Urobilinogen Normal mg/dL (Negative) Urine Leukocyte Esterase Negative /uL (Negative) Urine RBC None seen /hpf (0 - 3) Urine Microscopic WBC < 1 /HPF (0-3) Urine Squamous Epithelial Cells None seen /hpf (<5) Urine Bacteria None seen /hpf (None Seen) Urine Glucose Normal mg/dL (Normal) Microbiology Microbiology Date/Time Source Procedure Growth Status 07/21/25 14:53 Voided Urine Urine Culture - Final Complete Labs and/or images reviewed: Labs reviewed by me, Image(s) reviewed by me Assessment/Plan Assessment/Plan Acute cholelithiasis with possible cholecystitis status post laparoscopic cholecystectomy by surgeon Dr. Lopez 07/24/2025 continue Rocephin Flagyl pain medications IV fluids Bradycardia cardiology consult appreciated, echo 55 percent ejection fraction to avoid AV arthur blocking agents Abdomen is soft afebrile vital signs are stable tolerating regular diet cleared for discharge by surgeon Plan discussed with: Patient Date of Service: Jul 25, 2025 Billing Provider: STACEY NORWOOD MD Common Visit Codes: [id number] INP/OBS CARE(HIGH) STACEY NORWOOD MD Jul 25, 2025 08:03
--- NOTE | 2025-07-25 08:06 | DVHDS2 ---
Discharge Summary Date of Admission Jul 22, 2025 at 12:38 Date of Discharge: Jul 25, 2025 Admitting Diagnosis Acute cholecystitis Wounds: Laparoscopic cholecystectomy Labs/Diagnostic Data: Laboratory Results Test 07/25/25 06:09 07/22/25 13:34 07/22/25 12:50 07/21/25 14:53 White Blood Count 7.0 10^3/uL (4.4-10.8) Red Blood Count 4.10 10^6/uL (4.5-5.90) Hemoglobin 11.8 g/dL (13.5-17.5) Hematocrit 34.3 % (41.0-53.0) Mean Corpuscular Volume 83.6 fL (80.0-100.0) Mean Corpuscular Hemoglobin 28.8 pg (28.0-32.0) Mean Corpuscular Hemoglobin Concent 34.4 g/dL (32.0-36.0) Red Cell Distribution Width 14.6 % (11.8-14.3) Platelet Count 188 10^3/uL (140-450) Mean Platelet Volume 9.6 fL (6.9-10.8) Neutrophils (%) (Auto) 55.8 % (37.0-80.0) Lymphocytes (%) (Auto) 33.4 % (10.0-50.0) Monocytes (%) (Auto) 7.8 % (0.0-12.0) Eosinophils (%) (Auto) 2.3 % (0.0-7.0) Basophils (%) (Auto) 0.7 % (0.0-2.0) Neutrophils # (Auto) 3.9 10 ^3/uL (1.6-8.6) Lymphocytes # (Auto) 2.3 10 ^3/uL (0.4-5.4) Monocytes # (Auto) 0.5 10 ^3/uL (0-1.3) Eosinophils # (Auto) 0.2 10 ^3/uL (0-0.8) Basophils # (Auto) 0.1 10 ^3/uL (0-0.2) Nucleated Red Blood Cells 0.1 % Total Bilirubin 0.6 mg/dL (0.2-1.0) Sodium Level 140 mmol/L (136-145) Potassium Level 4.4 mmol/L (3.5-5.1) Chloride Level 105 mmol/L (98-107) Carbon Dioxide Level 29 mmol/L (20-31) Anion Gap 6 (5-15) Blood Urea Nitrogen 13 mg/dL (9-23) Creatinine 0.86 mg/dL (0.700-1.30) Glomerular Filtration Rate Calc 117 mL/min (>90) BUN/Creatinine Ratio 15.1 (10.0-20.0) Serum Glucose 110 mg/dL (74-106) Calcium Level 9.4 mg/dL (8.7-10.4) Aspartate Amino Transferase (AST) 22 U/L (13-40) Alanine Aminotransferase (ALT) 23 U/L (7-40) Alkaline Phosphatase 69 U/L (46-116) Total Protein 7.1 g/dL (5.7-8.2) Albumin 4.5 g/dL (3.2-4.8) Thyroid Stimulating Hormone (TSH) 1.14 uIU/mL (0.55-4.78) Urine Opiates Screen Neg (NEGATIVE) Urine Fentanyl Screen Pos (NEGATIVE) Urine Barbiturates Screen Neg (NEGATIVE) Urine Phencyclidine Screen Neg (NEGATIVE) Urine Amphetamines Screen Neg (NEGATIVE) Urine Benzodiazepines Screen Pos (NEGATIVE) Urine Cocaine Screen Neg (NEGATIVE) Urine Cannabinoids Screen Neg (NEGATIVE) Prothrombin Time 10.5 sec (9.3-11.8) Prothrombin Time INR 0.99 (0.9-1.15) Activated Partial Thromboplast Time 31.2 SEC (24.5-34.5) Urine Color Colorless (Yellow) Urine Clarity Clear (Clear) Urine pH 6.5 (5.0-9.0) Urine Specific [place] 1.007 (1.001-1.035) Urine Protein Negative (Negative) Urine Ketones Negative (Negative) Urine Blood Negative /uL (Negative) Urine Nitrite Negative (Negative) Urine Bilirubin Negative (Negative) Urine Urobilinogen Normal mg/dL (Negative) Urine Leukocyte Esterase Negative /uL (Negative) Urine RBC None seen /hpf (0 - 3) Urine Microscopic WBC < 1 /HPF (0-3) Urine Squamous Epithelial Cells None seen /hpf (<5) Urine Bacteria None seen /hpf (None Seen) Urine Glucose Normal mg/dL (Normal) Other Laboratory Tests 07/25/25 06:09 07/22/25 13:34 Brief Hx & Hospital Course: 35-year-old male came in for right upper quadrant abdominal pain found to have gallstones with a cholecystitis underwent laparoscopic cholecystectomy by . Treated with the antibiotics pain medications IV fluids postop course uneventful cleared for discharge by surgeon prescription for Levaquin Flagyl tramadol sent to the [facility] he will follow up with the surgeon in 10 days Consults/Reason for consult Surgeon Dr. Lopez Operations or Procedures Laparoscopic cholecystectomy Condition at Discharge: Fair Final Diagnosis/Problems List Acute cholecystitis status post laparoscopic cholecystectomy Discharge Disposition: Home Discharge Instruct/Medications Diet: Regular Activity: See Comment Activity comment: Off work for seven days Follow Up/Referral: Follow up with surgeon Dr. Lopez in 10 days Medications: Levaquin Flagyl Tramadol Transmitted to [facility] pharmacy Scheduled Levofloxacin Hemihydrate (Levaquin 500 Mg), 1 TAB PO DAILY Metronidazole (Flagyl), 1 TAB PO TID Scheduled PRN Tramadol HCl (Tramadol HCl), 50 MG PO QID PRN Discharge Statement: "Patient was advised to return to the ER or call 911 if any headaches, dizziness, shortness of breath, chest pain, abdominal pain, bleeding, fevers, or worsening of medical condition. Patient was counseled about treatment plan, medications, possible side effects, patientverbalized understanding. All questions were answered to the best of my ability. This discharge took greater then 30 minutes in planning, reviewing documentation, counseling the patient, and discussing with other team members." ASSESSMENT ASSESSMENT Hospital Course Uneventful Assessment Acute cholecystitis status post laparoscopic cholecystectomy Date of Service: Jul 25, 2025 Billing Provider: STACEY NORWOOD MD Common Visit Codes: [id number] DISCH DAY >30min STACEY NORWOOD MD Jul 25, 2025 08:06
[2025-07-25 09:00] VITALS: BP 125/77; PULSE 53; RESP 17; TEMP 98.5; O2SAT 98
== END 2025-07-25 11:23 | disposition home or self-care (01) | DRG 419 ==
LOC: SUR 08:19 → OVERFLOW 12:38 → TELE-CENTR 14:58
PROVIDERS: ADMIT Internal Medicine; ATTEND Internal Medicine
PROC: 0FT44ZZ Resection of Gallbladder, Percutaneous Endoscopic Approach (ICD-10-PCS; principal; 2025-07-24 09:41)
DX: K80.12 Calculus of gallbladder with acute and chronic cholecystitis without obstruction (principal); E66.01 Morbid (severe) obesity due to excess calories; Z68.37 Body mass index [BMI] 37.0-37.9, adult; R00.1 Bradycardia, unspecified; Z87.891 Personal history of nicotine dependence
CPT/HCPCS: 36415; 80053; 80307; 81001; 82247; 84443; 85025; 85610; 85730; 86850; 86900; 86901; 87086; 93005; 93306; G0378; J1100; J1885; J2250; J2405; J2704; J3490